=== PATIENT | male | born 1940 | race Caucasian/White ===

== ENCOUNTER → 2017-01-12 | Outpatient (CLI) | payer MEDICARE ==
[2017-01-12 08:58] LABS: Basophils # (A) 0.1 k/uL (0-0.2); Basophils % (A) 1 %; CH 31.9; CHCM 31.9; Eosinophils # (A) 0.1 k/uL (0-0.7); Eosinophils % (A) 2 %; HCT 56.6 % (39.0-53.0); HDW 2.42; Luc # (Auto) 0.14; Luc % (Auto) 2; Lymphocytes # (A) 1.3 k/uL (1.0-4.8); Lymphocytes % (A) 20 %; MCH 31.9 pg (25.0-35.0); MCHC 31.8 g/dL (31.0-37.0); MCV 100.5 fL (80.0-100.0); Mean Platelet Volume 6.9; Monocytes # (A) 0.3 k/uL (0-1.0); Monocytes % (A) 6 %; Neutrophils # (A) 4.2 k/uL (1.3-7.7); Neutrophils % (A) 69 %; RBC 5.63 m/uL (4.30-5.90); WBC 6.2 k/uL (3.8-10.6); WBC (Perox) 5.87
[2017-01-12 12:19] LABS: ALT 31 U/L (21-72); AST 20 U/L (17-59); Alkaline Phosphatase 60 U/L (38-126); Anion Gap 13 mmol/L; Blood Urea Nitrogen 23 mg/dL (9-20); Calcium 9.5 mg/dL (8.4-10.2); Carbon Dioxide 24 mmol/L (22-30); Chloride 109 mmol/L (98-107); Cholesterol 174 mg/dL (<200); Glucose 97 mg/dL (74-99); HDL Cholesterol 42 mg/dL (40-60); Non-African American GFR(MDRD) 59 (>60 ml/min/1.73 sqM); Potassium 4.7 mmol/L (3.5-5.1); Sodium 146 mmol/L (137-145); Total Bilirubin 1.2 mg/dL (0.2-1.3); Total Protein 7.4 g/dL (6.3-8.2); Triglycerides 125 mg/dL (<150)
== END | disposition home or self-care (01) ==
LOC: LABWHC1 08:13
PROVIDERS: ATTEND Internal Medicine
DX: E78.2 Mixed hyperlipidemia (principal); I10 Essential (primary) hypertension; Z12.5 Encounter for screening for malignant neoplasm of prostate
CPT/HCPCS: 80061; 80053; 85025; 36415; G0103

== ENCOUNTER → 2020-01-07 | Outpatient (CLI) | payer MEDICARE, OTHER ==
--- NOTE | 2020-01-07 12:00 | US ---
EXAMINATION TYPE: US venous doppler duplex LE LT DATE OF EXAM: 01/07/2020 11:44 AM COMPARISON: NONE CLINICAL HISTORY: R22.42 Localized swelling, mass and lump, left low. Edema left lower leg SIDE PERFORMED: Left TECHNIQUE: The lower extremity deep venous system is examined utilizing real time linear array sonog yonathan with graded compression, doppler sonography and color-flow sonography. VESSELS IMAGED: External Iliac Vein (EIV) Common Femoral Vein Deep Femoral Vein Greater Saphenous Vein * Femoral Vein Popliteal Vein Small Saphenous Vein * Proximal Calf Veins (* superficial vessels) Left Leg: No evidence for DVT IMPRESSION: No evidence for DVT at this time.
== END | disposition home or self-care (01) ==
LOC: LABWHC1 11:15
PROVIDERS: ATTEND Orthopaedic Surgery
DX: M25.572 Pain in left ankle and joints of left foot (principal); L03.90 Cellulitis, unspecified; R22.42 Localized swelling, mass and lump, left lower limb; I80.9 Phlebitis and thrombophlebitis of unspecified site

== ENCOUNTER → 2022-07-28 | Outpatient (CLI) | payer MEDICARE, OTHER ==
--- NOTE | 2022-07-28 16:39 | NM ---
EXAMINATION TYPE: NM bone scan whole body DATE OF EXAM: 07/28/2022 COMPARISON: NONE HISTORY: Neck and knee pain Delayed whole-body scanning was performed following the injection of 23.7 mCi Tc 99m MDP. Images wer e acquired 3 hours post injection. FINDINGS: There is focal radiotracer accumulation within the posterior right mid cervical spine can be compatib le degenerative changes. There is focal radiotracer within the left sacroiliac joint region posteriorly. Plain film correlatio n is recommended. Findings could be degenerative in nature. Other etiologies, such as metastasis, are not excluded. There is increase radiotracer within the bilateral knees most likely on the basis of degenerative enrique nges. Note is made of a focal area of uptake within the right lateral ninth rib region. This could be postt raumatic in nature. IMPRESSION: 1. Focal uptake within the posterior left sacroiliac joint region. Plain film correlation is recommen ded. 2. Radiotracer within the cervical spine knees most likely degenerative in nature. 3. Suspected posttraumatic change right lateral ninth rib region.
== END | disposition home or self-care (01) ==
LOC: RADNMMAIN 09:42
PROVIDERS: ATTEND Physical Medicine & Rehabilitation
DX: M48.56XA Collapsed vertebra, not elsewhere classified, lumbar region, initial encounter for fracture (principal)
CPT/HCPCS: 78306; A9503

== ENCOUNTER → 2022-08-11 | Outpatient (CLI) | payer MEDICARE, OTHER ==
--- NOTE | 2022-08-11 22:48 | BD ---
EXAMINATION TYPE: Axial Bone Density DATE OF EXAM: 08/11/2022 COMPARISON: NONE CLINICAL HISTORY: 82 years year old Male. ICD-10 CODE: M48.50XA COLLAPSED VERTEBR Height: 66 IN Weight: 198 LBS FRAX RISK QUESTIONS:History of Fracture in Adulthood: LT HIP FX AGE 72 RISK FACTORS HISTORY OF: Hip Fracture (Left): AGE 72 Surgery to Hip(left): AGE 72 Family History of Osteoporosis: YES MOTHER Active: YES Diet low in dairy products/other sources of calcium: YES Lost more than 2 inches in height since high school: YES 6" MEDICATIONS: Additional Medications: HEART MEDS, BLOOD PRESSURE MEDS, LOW DOSE ASPIRIN EXAM MEASUREMENTS: Bone mineral densitometry was performed using the [employer]. Bone mineral density as measured about the Lumbar spine is: ----- L1-L4(G/cm2): 0.896 T Score Values are as follows: ----- L1: -2.3 ----- L2: -3.2 ----- L3: -1.9 ----- L4: -2.2 ----- L1-L4: -2.4 Bone mineral density BASELINE Bone mineral density about the R hip (g/cm2): 0.545 T Score values are as follows: -----R Neck: -3.5 -----R Total: -3.3 Bone mineral density BASELINE FRAX%s: The graph provided illustrates a 23.1 chance for a major osteoporotic fx and a -3.3 chance fo r the hips probability for fx in 10 years time. IMPRESSION: Osteoporosis (T Score less than -2.5). There is increased fracture risk and therapy is usually indicated based on age. Re-Screen 1-2 years. NOTE: T-SCORE=SD OF THE YOUNG ADULT MEAN.
== END | disposition home or self-care (01) ==
LOC: RADBDWWP 08:29
PROVIDERS: ATTEND Internal Medicine
DX: M48.50XA Collapsed vertebra, not elsewhere classified, site unspecified, initial encounter for fracture (principal); M81.0 Age-related osteoporosis without current pathological fracture
CPT/HCPCS: 77080

== ENCOUNTER → 2023-02-21 | Outpatient (CLI) | payer MEDICARE, OTHER ==
--- NOTE | 2023-02-21 09:16 | US ---
EXAMINATION TYPE: US kidneys/renal and bladder DATE OF EXAM: 02/21/2023 COMPARISON: NONE CLINICAL INDICATION: Male, 82 years old with history of N18.31 CHRONIC KIDNEY DISEASE, STAGE 3A; EXAM MEASUREMENTS: Right Kidney: 9.7 x 5.5 x 6.6 cm Left Kidney: 11.5 x 6.6 x 5.1 cm Right Kidney: cortical thinning , No evidence of obstructive uropathy. Left Kidney: cortical thinning , No evidence of obstructive uropathy. Bladder: 0.9cm echogenic focus seen Bilateral Jets seen: yes Enlarged prostate - 4.8 x 4.7 x 5.5cm IMPRESSION: 1. Evidence of medical renal disease with cortical thinning. 2. Prostatomegaly correlate with serum PSA.
== END | disposition home or self-care (01) ==
LOC: RADUSWWP 07:54
PROVIDERS: ATTEND Internal Medicine
DX: N40.0 Benign prostatic hyperplasia without lower urinary tract symptoms (principal); N18.31 Chronic kidney disease, stage 3a
CPT/HCPCS: 76770

== ENCOUNTER → 2023-10-02 | Outpatient (CLI) | payer MEDICARE, OTHER ==
--- NOTE | 2023-10-02 09:28 | XR ---
EXAMINATION TYPE: XR chest 2V DATE OF EXAM: 10/02/2023 COMPARISON: NONE HISTORY: Shortness of breath TECHNIQUE: Frontal and lateral views of the chest are obtained. FINDINGS: Scattered senescent parenchymal changes noted. Hyperinflation compatible with COPD. No evidence for infiltrate. No evidence for atelectasis. Heart size is stable. Mediastinal structures are stable and grossly unremarkable. No evidence for hilar prominence. Degenerative changes dorsal spine. IMPRESSION: 1. No evidence for acute pulmonary disease.
== END | disposition home or self-care (01) ==
LOC: RADXRMAIN 08:54
PROVIDERS: ATTEND Internal Medicine Hematology & Oncology
DX: I10 Essential (primary) hypertension (principal); D75.1 Secondary polycythemia; R06.02 Shortness of breath
CPT/HCPCS: 71046

== ENCOUNTER → 2024-01-11 | Outpatient (CLI) | payer MEDICARE, OTHER ==
[2024-01-11 15:21] LABS: Basophils # (A) 0.08 X 10*3/uL (0.00-0.10); Eosinophils # (A) 0.18 X 10*3/uL (0.04-0.35); Eosinophils % (A) 2.4 %; HCT 52.9 % (39.6-50.0); HGB 17.2 g/dL (13.0-17.0); Lymphocytes # (A) 1.57 X 10*3/uL (0.90-5.00); Lymphocytes % (A) 20.6 %; MCH 31.4 pg (27.0-32.0); MCHC 32.5 g/dL (32.0-37.0); MCV 96.7 FL (80.0-97.0); Mean Platelet Volume 9.6 FL (9.5-12.2); Monocytes # (A) 0.61 X 10*3/uL (0.20-1.00); NRBC Per 100 WBC 0 X 10*3/uL (0.00-0.01); Neutrophils # (A) 5.17 X 10*3/uL (1.80-7.70); Neutrophils % (A) 67.7 %; Platelet Count 284 X 10*3/uL (140-440); RBC 5.47 X 10*6/uL (4.40-5.60); RDW 13.2 % (11.5-14.5); WBC 7.63 X 10*3/uL (4.50-10.00)
[2024-01-11 15:44] LABS: ALT 25 U/L (10-49); AST 22 U/L (14-35); Albumin 4.7 g/dL (3.8-4.9); Albumin/Globulin Ratio 2.14 Ratio (1.60-3.17); Alkaline Phosphatase 49 U/L (41-126); BUN/Creat Ratio 16.46 Ratio (12.00-20.00); Blood Urea Nitrogen 21.4 mg/dL (9.0-27.0); Calcium 9.4 mg/dL (8.7-10.3); Carbon Dioxide 24.7 mmol/L (21.6-31.8); Chloride 107 mmol/L (96-109); Chol/HDL Ratio 4.86 Ratio; Globulin 2.2 g/dL (1.6-3.3); Glucose 102 mg/dL (70-110); Magnesium 1.9 mg/dL (1.5-2.4); Potassium 4.4 mmol/L (3.5-5.5); Sodium 144 mmol/L (135-145); Total Bilirubin 0.8 mg/dL (0.3-1.2); Total Protein 6.9 g/dL (6.2-8.2)
== END | disposition home or self-care (01) ==
LOC: LABWHC1 09:16
PROVIDERS: ATTEND Internal Medicine
DX: I12.9 Hypertensive chronic kidney disease with stage 1 through stage 4 chronic kidney disease, or unspecified chronic kidney disease (principal); N18.31 Chronic kidney disease, stage 3a; M81.0 Age-related osteoporosis without current pathological fracture
CPT/HCPCS: 36415; 80053; 80061; 82306; 83735; 83970; 84443; 85025

== ENCOUNTER → 2024-08-12 | Outpatient (CLI) | payer MEDICARE, OTHER ==
--- NOTE | 2024-08-12 11:04 | BD ---
EXAMINATION TYPE: Axial Bone Density DATE OF EXAM: 08/12/2024 CLINICAL HISTORY: 84 years old Male. ICD-10 CODE: M81.0 AGE-RELATED OSTEOPOROSIS , Additional Histor y: Height: 5 ft 7 in Weight: 194 FRAX RISK QUESTIONS: Alcohol (3 or more units per day): no Family History (Parent hip fracture): yes Glucocorticoids (More than 3mos): no (Ex: prednisone, prednisolone, methylprednisolone, dexamethasone, and hydrocortisone). History of Fracture in Adulthood: yes Secondary Osteoporosis: 1. Type 1 Diabetes: no 2. Hyperthyroidism: no 4. Malnutrition: no 5. Chronic liver disease: no Rheumatoid Arthritis: no Current Tobacco Use: no RISK FACTORS HISTORY OF: Surgery to Spine/Hip(right/left)/Wrist (right/left): left femur/hip When: 12 years ago MEDICATIONS: Thyroid Medications: none Osteoporosis Medications: yes Which medication: fosamax How Lon years EXAM MEASUREMENTS: Bone mineral densitometry was performed using the [employer]. Bone mineral density as measured about the Lumbar spine is: ----- L1-L4(G/cm2): 0.994 T Score Values are as follows: ----- L1: -1.8 ----- L2: -2.5 ----- L3: -1.0 ----- L4: -1.1 ----- L1-L4: -1.6 Z Score Values are as follows: ----- L1: -1.6 ----- L2: -2.4 ----- L3: -0.9 ----- L4: -0.9 ----- L1-L4: -1.4 Bone mineral density has: increased 10.9 % since study of: 2021 Bone mineral density about the R hip (g/cm2): 0.587 T Score values are as follows: -----R Neck: -3.2 -----R Total: -3.0 Z Score values are as follows: -----R Neck: -2.2 -----R Total: -2.1 Bone mineral density has: increased 5.5 % since study of: 2021 FRAX%s: The graph provided illustrates a 20.7 % chance for a major osteoporotic fx and a 9.9 % chanc e for the hips probability for fx in 10 years time. IMPRESSION: Osteoporosis (T Score less than -2.5). There is increased fracture risk and therapy is usually indicated based on age. Re-Screen 1-2 years. NOTE: T-SCORE=SD OF THE YOUNG ADULT MEAN. [facility], , 08/12/2024 11:02 AM
== END | disposition home or self-care (01) ==
LOC: RADBDWWP 09:56
PROVIDERS: ATTEND Internal Medicine
DX: M81.0 Age-related osteoporosis without current pathological fracture (principal); M81.8 Other osteoporosis without current pathological fracture
CPT/HCPCS: 77080

== ENCOUNTER → 2024-11-10 | Outpatient (CLI) | payer MEDICARE, OTHER ==
--- NOTE | 2024-11-10 09:58 | XR ---
EXAMINATION TYPE: XR chest 2V DATE OF EXAM: 11/10/2024 9:11 AM COMPARISON: 10/02/2023 CLINICAL INDICATION: Male, 84 years old with history of J45.909 UNSPECIFIED ASTHMA, UNCOMPLICATED: Sh ortness of breath TECHNIQUE: XR chest 2V views of the chest are obtained. FINDINGS: Scattered senescent parenchymal changes noted. Hyperinflation compatible with COPD. No evidence for infiltrate. No evidence for atelectasis. Heart size is stable. Mediastinal structures are stable and grossly unremarkable. No evidence for hilar prominence. Degenerative changes dorsal spine. IMPRESSION: 1. No evidence for acute pulmonary disease. [facility], , 11/10/2024 9:56 AM
== END | disposition home or self-care (01) ==
LOC: RADXRMAIN 08:55
PROVIDERS: ATTEND Internal Medicine
DX: J45.909 Unspecified asthma, uncomplicated (principal)
CPT/HCPCS: 71046